=== PATIENT | female | born 1955 | race Caucasian/White ===

== ENCOUNTER → 2017-04-11 | Outpatient (CLI) | payer OTHER ==
--- NOTE | 2017-04-16 08:56 | MM ---
Reason for exam: screening (asymptomatic). Last mammogram was performed 1 year and 5 months ago. History: Patient is postmenopausal. Physical Findings: A clinical breast exam by your physician is recommended on an annual basis and results should be correlated with mammographic findings. MG Screening Mammo w CAD Bilateral CC and MLO view(s) were taken. Prior study comparison: November 22, 2015, bilateral MG screening mammo w CAD. July 23, 2013, bilateral digital screening mammo w/CAD. November 19, 2011, bilateral digital screening mammo w/CAD. There are scattered fibroglandular densities. No significant changes when compared with prior studies. ASSESSMENT: Negative, BI-RAD 1 RECOMMENDATION: Routine screening mammogram of both breasts in 1 year.
== END | disposition home or self-care (01) ==
LOC: RADMAMWWP 13:10
PROVIDERS: ATTEND Family Medicine
DX: Z12.31 Encounter for screening mammogram for malignant neoplasm of breast (principal)

== ENCOUNTER 2018-07-16 07:36 | Day surgery (SDC) | payer OTHER, MEDICARE ==
[2018-07-13 15:53] VITALS: BMI 32.2
[~2018-07-16 07:36] MED LIST: HYDROmorphone 1 MG/ML 1 ML SYRINGE IVP PRN; LACTATED RINGERS 1,000 ML IV SCH; LIDOCAINE 1% 20 ML VIAL (10MG/ML) FOR IV START INTRADERMA PRN; MIDAZOLAM 2 MG/2 ML VIAL IV PRN
[2018-07-16] MEDS ORDERED: LACTATED RINGERS 1,000 ML IV ONE (08:37)
[2018-07-16 08:38] VITALS: TEMP 98.2
[2018-07-16] MEDS ORDERED: PROPOFOL 10 MG/ML 20 ML VIAL IV ONE (09:02)
[2018-07-16 09:29] VITALS: RESP 16
--- NOTE | 2018-07-16 09:30 | P.PCN ---
Date of Procedure: 07/16/18 Procedure(s) Performed: Procedure: Total colonoscopy. Preoperative diagnosis: Screening for neoplasia. Postoperative diagnosis: Sigmoid diverticulosis with no evidence of acute diverticulitis, strictures, polyps or cancer. Preparation: HalfLytely prep. Sedation: Was provided by anesthesia. Brief clinical history: The patient is a 62-year-old female who is scheduled for this evaluation for screening for neoplasia age being her risk factor in addition to family history of colon cancer in her brother. The patient has no abdominal complaints, bleeding or anemia. This would be her first colonoscopy. Procedure: With the patient on her left lateral decubitus position and after informed consent and adequate sedation, the perianal area was inspected and it did not show any fissures or fistulas. He were no masses felt on digital rectal examination. The Olympus CFQ 160L video colonoscope was then inserted in the rectum in the usual fashion and advanced to the cecum. There were multiple diverticular orifices seen scattered in the sigmoid but I saw no evidence of acute diverticulitis or strictures. No polyps or tumors were seen. I retroflexed the endoscope in the rectum before the endoscope was withdrawn. The patient tolerated the procedure well. Plan: The patient was reassured. Discussed dietary measures. She will follow- up with you as planned and I recommended repeat exam in 5 years.
[2018-07-16 09:44] VITALS: BP 160/61; PULSE 57
== END 2018-07-16 10:29 | disposition home or self-care (01) ==
LOC: ORWHC2ENDO 07:36
DX: Z12.11 Encounter for screening for malignant neoplasm of colon (principal); K57.30 Diverticulosis of large intestine without perforation or abscess without bleeding; Z80.0 Family history of malignant neoplasm of digestive organs; K21.9 Gastro-esophageal reflux disease without esophagitis; E78.5 Hyperlipidemia, unspecified; Z87.891 Personal history of nicotine dependence; Z79.890 Hormone replacement therapy; Z79.899 Other long term (current) drug therapy
CPT/HCPCS: J2704; G0105

== ENCOUNTER → 2019-12-20 | Outpatient (CLI) | payer OTHER ==
--- NOTE | 2019-12-20 15:41 | XR ---
Cervical spine HISTORY: Numbness down right arm, right neck pain, M 5013 5 views of the cervical spine Facet arthropathy changes are present. Multilevel spondylosis is noted. Cervical vertebral bodies lorrie w preserved height, bone mineralization is reduced. Anterolisthesis grade 1 C2-3, retrolisthesis grad e 1 C4-5, anterolisthesis grade 1 C6-7. There is multilevel spondylosis, loss of disc height at inter vertebral levels. Multilevel foraminal encroachment C4-5, C5-6 bilaterally. Oval metallic density on the oblique view may be overlying the patient in the upper chest. IMPRESSION: Degenerative disc disease and facet arthropathy.
== END ==
LOC: RADXRYALE 13:44
PROVIDERS: ATTEND Physician Assistant Medical
DX: M50.10 Cervical disc disorder with radiculopathy, unspecified cervical region (principal); M46.92 Unspecified inflammatory spondylopathy, cervical region
CPT/HCPCS: 72050

== ENCOUNTER → 2020-02-02 | Outpatient (CLI) | payer MEDICARE ==
--- NOTE | 2020-02-02 10:50 | MR ---
EXAMINATION TYPE: MR cervical spine wo con DATE OF EXAM: 02/02/2020 COMPARISON: Cervical spine x-rays dated 12/20/2019 HISTORY: Neck/rt shoulder pain, numbness down rt arm x 6 weeks; no hx trauma/surgery TECHNIQUE: Multiplanar, multisequential MR imaging of the cervical spine was obtained without intrave nous contrast. FINDINGS: The cervical spine vertebral bodies maintain normal vertebral body heights. There is grade 1 anteroli sthesis of C2 on C3 and minimal retrolisthesis of C4 and C5 as well as grade 1 anterolisthesis of C6 on C7 seen on the prior x-ray of 12/20/2019 are redemonstrated. Multilevel uncovertebral hypertrophy an d facet arthropathy are seen. No suspicious bone marrow signal. Spinal cord signal is slightly limite d given patient motion however no gross focal signal abnormality. C2-C3: There is a small central disc herniation without spinal canal stenosis or neural foraminal so rowing. C3-C4: There is a broad-based central disc herniation narrowing the ventral subarachnoid space. There is mild uncovertebral hypertrophy is seen bilaterally with minimal bilateral neural foraminal narrow ing. C4-C5: There is a broad-based disc bulge and uncovertebral hypertrophy as well as facet arthropathy c reating moderate bilateral neural foraminal narrowing and mild spinal canal stenosis. Ligamentum flav um buckling just inferior to the intervertebral disc space level on axial image 30 contributes to foc al moderate spinal canal stenosis. C5-C6: There is a right eccentric disc bulge, uncovertebral hypertrophy and facet arthropathy creatin g mild spinal canal stenosis, moderate left neural foraminal narrowing and moderate to severe right n eural foraminal narrowing. C6-C7: There is disc uncovering and a broad-based disc bulge as well as right-sided uncovertebral hyp ertrophy and facet arthropathy creating mild right neural foraminal narrowing. No significant spinal canal stenosis nor left neural foraminal narrowing. C7-T1: Disc desiccation and broad-based disc bulge are seen with uncovertebral hypertrophy and facet arthropathy creating moderate right neural foraminal narrowing and mild left neural foraminal narrowi ng. No significant spinal canal stenosis. T1-T2: Degenerative disc disease is seen with a possible right foraminal disc herniation. IMPRESSION: 1. Small central disc herniation without spinal canal stenosis or neural foraminal narrowing at C2-C3 . 2. Broad-based central disc herniation at C3-C4 creating minimal spinal canal stenosis and minimal bi lateral neural foraminal narrowing. 3. Mild spinal canal stenosis at C4-C5 as a result of degenerative disc disease with moderate spinal canal stenosis just below the disc space contributed to by ligamentum flavum buckling. Moderate bilat eral neural foraminal narrowing. 4. Right eccentric disc bulge at C5-C6 creates mild spinal canal stenosis, moderate to severe right n euroforaminal narrowing and degenerative change create moderate left neural foraminal narrowing. 5. Multilevel malalignment, likely on a degenerative basis. 6. Degenerative disc disease at the remaining cervical levels as detailed above with possible right f oraminal disc herniation at T1-T2.
== END | disposition home or self-care (01) ==
LOC: RADMRIMAIN 09:21
PROVIDERS: ATTEND Family Medicine
DX: M48.02 Spinal stenosis, cervical region (principal); M50.11 Cervical disc disorder with radiculopathy, high cervical region
CPT/HCPCS: 72141

== ENCOUNTER → 2020-09-20 | Outpatient (CLI) | payer MEDICARE ==
--- NOTE | 2020-09-21 11:14 | MM ---
Reason for exam: screening (asymptomatic). Last mammogram was performed 3 years and 5 months ago. History: Patient is postmenopausal and has history of other cancer at age 55. Physical Findings: A clinical breast exam by your physician is recommended on an annual basis and results should be correlated with mammographic findings. MG Screening Mammo w CAD Bilateral CC and MLO view(s) were taken. Prior study comparison: April 11, 2017, bilateral MG screening mammo w CAD. November 22, 2015, bilateral MG screening mammo w CAD. The breast tissue is heterogeneously dense. This may lower the sensitivity of mammography. There are benign appearing round calcifications bilaterally. There is no discrete abnormality. ASSESSMENT: Benign, BI-RAD 2 RECOMMENDATION: Routine screening mammogram of both breasts in 1 year.
== END | disposition home or self-care (01) ==
LOC: RADMAMWWP 10:49
PROVIDERS: ATTEND Family Medicine
DX: Z12.31 Encounter for screening mammogram for malignant neoplasm of breast (principal)
CPT/HCPCS: 77067

== ENCOUNTER → 2021-08-20 | Outpatient (CLI) | payer MEDICARE ==
[2021-08-20 08:57] VITALS: BP 150/74; PULSE 68; RESP 18
--- NOTE | 2021-08-20 09:22 | P.PAINCN ---
History of Present Illness - Reason for Consult Consult date: 08/20/21 - History of Present Illness Jaimie is a 66-year-old female presenting to clinic today for initial evaluation for neck and right arm pain. She reports around December 2019 she was moving some furniture and she felt a popping sensation in her neck and after that point she's had continued pain in her neck and right tricep and arm. She reports its right side only goes down to her right shoulder and stops above her wrist. This is going on for over a year and a half. She describes it as a sharp, dull, throbbing sensation. Her prednisone is worse with increase use, while changing positions, and changes in the weather. It's better with rest, ice compresses, certain positions. He is currently in physical therapy for about 2-1/2 weeks portage skin some relief with physical therapy. She has not seen a chiropractor or has used any massage therapy. Currently takes Motrin as needed. Today she reports her pain as a 4 out of 10 which is better than normal. On average her pain is 8 out of 10 on a 0-to-10 scale. She denies any bowel or bladder dysfunction, saddle anesthesia, or any other red flag symptoms. She denies any adverse effects from the medication that she takes. Past Medical History Past Medical History: GERD/Reflux, Hyperlipidemia, Osteoarthritis (OA), Thyroid Disorder Additional Past Medical History / Comment(s): back pain History of Any Multi-Drug Resistant Organisms: None Reported Past Surgical History: Back Surgery, Tubal Ligation Additional Past Surgical History / Comment(s): colonoscopy Past Anesthesia/Blood Transfusion Reactions: No Reported Reaction Smoking Status: Former smoker - Past Family History Brother(s) Family Medical History: Cancer Additional Family Medical History / Comment(s): liver,colon,lung Medications and Allergies Home Medications Medication Instructions Recorded Confirmed Type ALPRAZolam [Xanax] 0.5 mg PO TID PRN 07/13/18 08/20/21 History Levothyroxine Sodium [Synthroid] 100 mcg PO QAM 07/13/18 08/20/21 History Omeprazole 20 mg PO QAM 07/13/18 08/20/21 History Sertraline [Zoloft] 100 mg PO QAM 07/13/18 08/20/21 History Simvastatin [Zocor] 10 mg PO HS 07/13/18 08/20/21 History Celecoxib [CeleBREX] 200 mg PO DAILY 08/20/21 08/20/21 History Allergies Allergy/AdvReac Type Severity Reaction Status Date / Time No Known Allergies Allergy Verified 08/20/21 09:11 Physical Exam REVIEW OF ORGAN SYSTEMS: CONSTITUTIONAL: No fevers or chills. No recent weight loss. EYES: denies troubles with vision. HEENT: No difficulties with hearing. No nosebleeds. No difficulty swallowing. RESPIRATORY: Denies any troubles with breathing or dyspnea on exertion. CARDIOVASCULAR: Denies any chest pain, palpitations, or recent heart attacks. GASTROINTESTINAL: Denies fatty food intolerance. Has change in bowel habits and gas bloat. GENITOURINARY: Denies any blood in urine. Has increased urinary frequency. NEUROLOGICAL: + numbness and tingling along the distal extremities. No seizure disorders or headaches. MUSCULOSKELETAL: Has back pain. SKIN:no skin cancer. No rash. PSYCHIATRIC: Denies current depression or suicidal thoughts. ENDOCRINE: Denies current thyroid disorders. Denies any blood sugar glucose intolerance. HEME/LYMPHATIC: Denies any lumps and bumps around the neck. History of deep venous thrombosis. ALLERGY/IMMUNOLOGY: No immunoglobulin therapy. No immune deficiencies. BREAST: Denies current breast lumps, pain or nipple discharge. Physical Examinations : Constitutiona : Cooperative , not in acute distress . HEENT : nech : supple , no Lymphadenopathy , normal thyroid size . : eyes no ptosis , no icterus, no photophobia . : ENT normal of hearing , normal oropharynx , no Thrush . Respiratory : Chest clear to auscultations Bilaterally , no wheezing , no Rhonchi . Cardiovascula : regular rate and rhythem , S1 , S2 , no S3 , no S4. Gastrointestina : abdomen soft no tenderness , bowel sounds , no organomegally . Genitourinary : Defferred . neurologic : Cranial nerve II to XII intact , no focal neurological deffecit . psychatric : alert , oriented X 3 , appropriate affect , intact judgment and insight . Lymphatic : no Lymphadenopathy . musculoskeltal : Cervical Spine motor stregnth in the deltoid and biceps, 2/5 right side , normal Left side motor stregnth biceps and the wrist extensors 3/5 right side ,normal left side . motor stregnth in the triceps muscle . normal 3 out of 5, normal Left side deep tendon reflexes= normal at the biceps , normal at Brachioradialis , normal at triceps. cervical facet loading test: Positive Bilaterally Spurling test= positive right. Neck distraction test= positive right Boni sign= negative bilaterally Upper extremities: Right shoulder positive impingement, positive Littlejohn, positive Neer's, positive empty can test. Left side full range of motion, negative impingement exams Assessment and Plan Assessment: Assessment and plan Assessment: Cervical spondylosis and facet arthropathy without myelopathy Cervical radiculitis Right shoulder impingement Plan: Patient could benefit from cervical epidural steroid injection at C5-C6 with a right paramedian approach. Consider right shoulder intra-articular injection if patient's shoulder symptoms persist - PQRS measures = - Patient's medications are documented in the chart. -Tobacco use is negative -Patient's has not received pneumococcal vaccine. -Advanced care planning discussed, patient not eligible. -Opiate contract not signed. -Pain positive and follow-up visit/procedure is scheduled. -Patient's blood pressure measured 150/74 , and documented in the record ,and patient will follow up with the primary care. -Patient was not identified as an unhealthy alcohol user Time with Patient: Greater than 30 PQRS Measure Charge Sheet - Pain Location Right Neck Non-Pharmacological Interventions: Ice, Inactivity, Physical Therapy, Position/Reposition, Stretching Pharmacological Interventions: PRN Medication PQRS Narrative: Smoking Status Former smoker Pain Intensity [Right Neck] 5 Scale Used Numeric (1 - 10) Hx Alcohol Use (MH) Yes Home Medications: Ambulatory Orders ALPRAZolam [Xanax] 0.5 mg PO TID PRN 07/13/18 Levothyroxine Sodium [Synthroid] 100 mcg PO QAM 07/13/18 Omeprazole 20 mg PO QAM 07/13/18 Sertraline [Zoloft] 100 mg PO QAM 07/13/18 Simvastatin [Zocor] 10 mg PO HS 07/13/18 Celecoxib [CeleBREX] 200 mg PO DAILY 08/20/21
== END ==
LOC: PNWHC3 08:14
PROVIDERS: ATTEND Student in an Organized Health Care Education/Training Program
DX: M47.812 Spondylosis without myelopathy or radiculopathy, cervical region (principal); E78.5 Hyperlipidemia, unspecified; K21.9 Gastro-esophageal reflux disease without esophagitis; M19.90 Unspecified osteoarthritis, unspecified site; Z87.891 Personal history of nicotine dependence; Z79.899 Other long term (current) drug therapy
CPT/HCPCS: 99211

== ENCOUNTER → 2022-09-17 | Outpatient (CLI) | payer MEDICARE ==
--- NOTE | 2022-09-18 09:37 | MM ---
Reason for Exam: Screening (asymptomatic). Last mammogram was performed 2 year(s) and 0 month(s) ago. Patient History: Menarche at age 10. First Full-Term at age 23. Postmenopausal. Other cancer, age 55. Risk Values: Pratima 5 year model risk: 1.9%. NCI Lifetime model risk: 5.9%. Prior Study Comparison: 11/22/2015 Bilateral Screening Mammogram, [facility]. 04/11/2017 Bilateral Screening Mammogram, [facility]. 09/20/2020 Bilateral Screening Mammogram, [facility]. Tissue Density: There are scattered fibroglandular densities. Findings: Analyzed By CAD. Stable benign-appearing bilateral axillary lymph nodes. A few scattered tiny round calcifications. The bilateral breasts are redemonstrated. Stable 4 mm round circumscribed mass anteriorly in the right breast. New faint heterogeneous grouped calcifications in the anterior to middle depth upper outer left breast warrant further workup. Overall Assessment: Incomplete: need additional imaging evaluation, BI-RAD 0 Management: Diagnostic Mammogram of the left breast. Return for additional spot magnification and true lateral views left breast. Electronically signed and approved by: Pete Portillo M.D.
== END | disposition home or self-care (01) ==
LOC: RADMAMWWP 12:50
PROVIDERS: ATTEND Family Medicine
DX: Z12.31 Encounter for screening mammogram for malignant neoplasm of breast (principal); Z78.0 Asymptomatic menopausal state
CPT/HCPCS: 77063; 77067

== ENCOUNTER → 2022-09-25 | Outpatient (CLI) | payer MEDICARE ==
--- NOTE | 2022-09-25 10:32 | MM ---
Reason for Exam: Additional evaluation requested from abnormal screening. Last screening mammogram was performed less than 1 month ago. Patient History: Menarche at age 10. First Full-Term at age 23. Postmenopausal. Other cancer, age 55. Risk Values: Pratima 5 year model risk: 1.9%. NCI Lifetime model risk: 5.9%. Prior Study Comparison: 04/11/2017 Bilateral Screening Mammogram, [facility]. 09/20/2020 Bilateral Screening Mammogram, [facility]. 09/17/2022 Bilateral MG 3D screening mammo w/cad, [facility]. Tissue Density: Left: There are scattered fibroglandular densities. Findings: Analyzed By CAD. Magnification compression views have scattered regional punctate calcifications. No suspicious cluster of microcalcifications is evident. No underlying spiculated or lobular masses evident. Short term follow-up recommended. Overall Assessment: Probably benign, BI-RAD 3 Management: Diagnostic Mammogram of the left breast in 6 months. A clinical breast exam by your physician is recommended on an annual basis and results should be correlated with mammographic findings. This exam should not preclude additional follow-up of suspicious palpable abnormalities. Results were given to the patient verbally at the time of exam. Electronically signed and approved by: Semaj Gutierrez D.O. Radiologis
== END | disposition home or self-care (01) ==
LOC: RADMAMWWP 08:49
PROVIDERS: ATTEND Family Medicine
DX: R92.8 Other abnormal and inconclusive findings on diagnostic imaging of breast (principal); Z78.0 Asymptomatic menopausal state
CPT/HCPCS: 77065; G0279; 77061

== ENCOUNTER → 2023-03-26 | Outpatient (CLI) | payer MEDICARE ==
--- NOTE | 2023-03-26 10:54 | MM ---
Reason for Exam: Follow-up at short interval from prior study. Last screening mammogram was performed 6 month(s) ago. Patient History: Menarche at age 10. First Full-Term at age 23. Postmenopausal. Other cancer, age 55. Risk Values: Pratima 5 year model risk: 1.9%. NCI Lifetime model risk: 5.9%. Prior Study Comparison: 09/20/2020 Bilateral Screening Mammogram, [facility]. 09/17/2022 Bilateral MG 3D screening mammo w/cad, [facility]. 09/25/2022 Left MG 3D work up w/cad LT, [facility]. Tissue Density: Left: There are scattered fibroglandular densities. Findings: Analyzed By CAD. There is some asymmetry in the upper-outer aspect left breast. Under compression the superior appears to disperse. Persistent suspicious underlying nodularity is not identified short-term follow-up is recommended. Overall Assessment: Probably benign, BI-RAD 3 Management: Diagnostic Mammogram of both breasts in 6 months. A negative mammogram report should not preclude additional follow up of suspicious palpable abnormalities. Patient should continue monthly self breast exam. A clinical breast exam by your physician is recommended on an annual basis and results should be correlated with mammographic findings. Electronically signed and approved by: Semaj Gutierrez D.O. Radiologis
== END | disposition home or self-care (01) ==
LOC: RADMAMWWP 09:37
PROVIDERS: ATTEND Family Medicine
DX: N64.89 Other specified disorders of breast (principal); Z78.0 Asymptomatic menopausal state
CPT/HCPCS: 77061; 77065

== ENCOUNTER → 2024-12-29 | Outpatient (CLI) | payer MEDICARE ==
--- NOTE | 2024-12-29 13:54 | MM ---
Reason for Exam: Screening (asymptomatic). Last mammogram was performed 2 year(s) and 3 month(s) ago. Patient History: Menarche at age 10. First Full-Term at age 23. Postmenopausal. Sister had breast cancer, age 75. Risk Values: Pratima 5 year model risk: 3.4%. NCI Lifetime model risk: 9.3%. Prior Study Comparison: 09/17/2022 Bilateral MG 3D screening mammo w/cad, [facility]. 09/25/2022 Left MG 3D work up w/cad LT, [facility]. 03/26/2023 Left MG 3D diag mammo w/cad LT, [facility]. Tissue Density: The breasts are heterogeneously dense, which may obscure small masses. Findings: Analyzed By CAD. There are a few scattered benign-appearing calcifications bilaterally redemonstrated. Benign-appearing bilateral axillary lymph nodes are again seen. There is no suspicious group of microcalcifications or new suspicious mass in either breast. Overall Assessment: Benign, BI-RAD 2 Management: Screening Mammogram of both breasts in 1 year. . Patient should continue monthly self-breast exams. A clinical breast exam by your physician is recommended on an annual basis. This exam should not preclude additional follow-up of suspicious palpable abnormalities. Note on Pratima scores and lifetime risk: 1. A Pratima score greater than 3% is considered moderate risk. If this is the case, consider specialist referral to assess eligibility for a risk reducing agent. 2. If overall lifetime risk for the development of breast cancer is 20% or higher, the patient may qualify for future screening with alternating mammogram and breast MRI. [facility], , 12/29/2024 1:51 PM. Electronically signed and approved by: Pete Portillo M.D.
--- NOTE | 2024-12-29 15:04 | BD ---
EXAMINATION TYPE: Axial Bone Density DATE OF EXAM: 12/29/2024 CLINICAL HISTORY: 69 years old Female. ICD-10 CODE: M89.99 DISORDER OF BONE , Additional History: Height: 59.25 Weight: 155 FRAX RISK QUESTIONS: Alcohol (3 or more units per day): no Family History (Parent hip fracture): no History of Fracture in Adulthood: no Secondary Osteoporosis: no RISK FACTORS HISTORY OF: Surgery to Spine/Hip(right/left)/Wrist (right/left): no MEDICATIONS: Thyroid Medications: yes Which medication: Synthroid How Lon+ years Osteoporosis Medications: no Which medication: Fosamax EXAM MEASUREMENTS: Bone mineral densitometry was performed using the Taplister System. Bone mineral density as measured about the Lumbar spine is: ----- L1-L4(G/cm2): 1.585 T Score Values are as follows: ----- L1: 2.1 ----- L2: 2.5 ----- L3: 4.1 ----- L4: 4.2 ----- L1-L4: 1.585 Z Score Values are as follows: ----- L1: 3.6 ----- L2: 4.0 ----- L3: 5.7 ----- L4: 5.7 ----- L1-L4: 4.9 Bone mineral density has: Increased 25.6% since study of: 07/09/2016 Bone mineral density about the R hip (g/cm2): 0.759 Bone mineral density about the L hip (g/cm2): 0.799 T Score values are as follows: -----R Neck: -2.0 -----L Neck: -1.7 -----R Total: -0.8 -----L Total: -0.5 Z Score values are as follows: -----R Neck: -0.4 -----L Neck: -0.1 -----R Total: 0.6 -----L Total: 0.9 Bone mineral density has: Increased 0.1% since study of: 07/09/2016 FRAX%s: The graph provided illustrates a 11.9% chance for a major osteoporotic fx and a 2.4% chance f or the hips probability for fx in 10 years time. IMPRESSION: Osteopenia (T Score between -2.5 and -1) remains present. There is slightly increased risk of fracture and the patient may be considered for treatment. Re-Screen 2-5 years. NOTE: T-SCORE=SD OF THE YOUNG ADULT MEAN. [facility], , 12/29/2024 3:02 PM
== END | disposition home or self-care (01) ==
LOC: RADMAMWWP 13:17
PROVIDERS: ATTEND Family Medicine
DX: Z12.31 Encounter for screening mammogram for malignant neoplasm of breast (principal); R92.333 Mammographic heterogeneous density, bilateral breasts; R92.1 Mammographic calcification found on diagnostic imaging of breast; M85.89 Other specified disorders of bone density and structure, multiple sites; Z78.0 Asymptomatic menopausal state; Z80.3 Family history of malignant neoplasm of breast
CPT/HCPCS: 77063; 77067; 77080

== ENCOUNTER → 2025-01-12 | Outpatient (CLI) | payer MEDICARE ==
--- NOTE | 2025-01-12 15:06 | CTL ---
EXAMINATION TYPE: CT Low Dose Lung DATE OF EXAM ORDERED: 01/12/2025 COMPARISON: CLINICAL INDICATION: Female, 69 years old with history of Z12.2 ENCNTR SCREEN FOR MALIGNANT NEOPLASM OF RESP; PHH, Former smoker. Quit in 2011. Hx of 1 PPD x35yrs., Lung cancer screening, History of Smo paz/tobacco use. TECHNIQUE: Low dose computed tomography scan was performed through the chest at 1 mm thick sections a nd reconstructed images in multiple planes at 1 mm and [address] DLP: 112.[address] CTDI: 3.2 mGy Automated exposure control for dose reduction was used. CT DIAGNOSTIC QUALITY: Satisfactory Non EXAMINATION TYPE: CT Low Dose Lung DATE OF EXAM ORDERED: 01/12/2025 CLINICAL INDICATION: Female, 69 years old with history of Z12.2 ENCNTR SCREEN FOR MALIGNANT NEOPLASM OF RESP, history of tobacco use, Lung cancer screening CT DLP: 112.[address] CTDI: 3.2 mGy Automated exposure control for dose reduction was used. Comparison: None TECHNIQUE: Low dose computed tomography scan was performed through the chest at 1 mm thick sections a nd reconstructed images in multiple planes at 1 mm and [address] DIAGNOSTIC QUALITY: Satisfactory FINDINGS: There is a 4.3 mm nodule in the left lower lobe. There is a 1 to 2 mm nodule in the right upper lobe. There is no airspace consolidation or abnormal interstitial density. There is no mediastinal, hilar or axillary adenopathy. There is no pleural effusion, pleural thickening or pneumothorax. No focal osseous lesions are seen. Limited scans the upper abdomen reveals a large hiatal hernia. IMPRESSION: 1. Lung rads Category 3, probably benign. Follow-up CT thorax in 6 months is recommended confirm stab ility of the left lower lobe pulmonary nodule. 2. No acute cardiopulmonary disease. 3. Large hiatal hernia. [facility], , 01/12/2025 3:04 PM
== END | disposition home or self-care (01) ==
LOC: RADCTMAIN 13:32
PROVIDERS: ATTEND Family Medicine
DX: Z12.2 Encounter for screening for malignant neoplasm of respiratory organs (principal); R91.1 Solitary pulmonary nodule; K44.9 Diaphragmatic hernia without obstruction or gangrene; Z87.891 Personal history of nicotine dependence
CPT/HCPCS: 71271